=== PATIENT | male | born 1940 | race Caucasian/White ===

== ENCOUNTER 2016-05-09 14:03 | Outpatient (CLI) | payer OTHER, BC | END 2016-05-09 23:00 | LOC: LAB SRH 14:03 | DX: N05.9 Unspecified nephritic syndrome with unspecified morphologic changes (principal); R80.9 Proteinuria, unspecified; N25.81 Secondary hyperparathyroidism of renal origin | CPT/HCPCS: 90047; 90185; 91171; 92331 ==

== ENCOUNTER 2016-05-21 13:17 | Outpatient (CLI) | payer OTHER, BC | END 2016-05-21 23:00 | LOC: LAB SRH 13:17 | DX: Z51.81 Encounter for therapeutic drug level monitoring (principal); Z79.01 Long term (current) use of anticoagulants; I48.91 Unspecified atrial fibrillation | CPT/HCPCS: 90074; 94060 ==

== ENCOUNTER 2016-06-01 12:07 | Outpatient (CLI) | payer OTHER, BC ==
--- NOTE | 2016-06-01 12:40 | DIAGNOSTIC IMAGING REPORT ---
PROCEDURE: XR CHEST 2 VIEW INDICATION: COUGH TECHNIQUE: PA and lateral views. COMPARISON: Chest 05/22/2010 FINDINGS: There is a right lower lobe infiltrate and a small right pleural effusion. The infiltrate is seen best on the lateral view. Again there is borderline cardiomegaly IMPRESSION: 1. Right lower lobe infiltrate and small pleural effusion.
== END 2016-06-01 23:00 ==
LOC: XR SRH 12:07
DX: J90 Pleural effusion, not elsewhere classified (principal); R91.8 Other nonspecific abnormal finding of lung field

== ENCOUNTER 2016-06-20 10:14 | Outpatient (CLI) | payer OTHER, BC ==
--- NOTE | 2016-06-20 10:37 | DIAGNOSTIC IMAGING REPORT ---
PROCEDURE: XR CHEST 2 VIEW INDICATION: PNEUMONIA TECHNIQUE: PA and lateral views. COMPARISON: Chest 06/01/2016 FINDINGS: There is a new left lower lobe infiltrate and pleural effusion. No change in the right lower lobe infiltrate and right pleural effusion. IMPRESSION: 1. New left lower lobe infiltrate and pleural effusion.
== END 2016-06-20 23:00 ==
LOC: XR SRH 10:14
DX: R91.8 Other nonspecific abnormal finding of lung field (principal); J90 Pleural effusion, not elsewhere classified

== ENCOUNTER 2016-06-25 10:36 | Outpatient (CLI) | payer OTHER, BC ==
--- NOTE | 2016-06-25 12:02 | DIAGNOSTIC IMAGING REPORT ---
PROCEDURE: CT THORAX WITHOUT CONTRAST INDICATION: ABNORMAL CHEST XRAY TECHNIQUE: Noncontrast axial images were obtained of the chest with coronal and sagittal reformations. COMPARISON: Chest x-ray 06/20/2016 FINDINGS: 7 mm right upper lobe (image 31) and 5 mm right lower lobe (image 44) nodules. There are also small peripheral pleural based scars. Mild left basilar atelectasis. There are small bilateral pleural effusions, left greater than right. Enlarged pretracheal (1.4 cm short axis) and anterior mediastinal lymph nodes. Mild atherosclerosis of the aorta. Coronary atherosclerosis. Heart size is normal. Visualized upper abdomen is unremarkable. Large spurs of the mid to distal thoracic spine. No suspicious osseous lesions. IMPRESSION: 1. Minor left basilar atelectasis with small bilateral pleural effusions, left greater than right. 2. Two right upper and right lower lobe nodules, indeterminate but likely postinflammatory. Recommend follow-up scan in 6-12 months depending on risk factors.
== END 2016-06-25 23:00 ==
LOC: CT SRH 10:36
DX: R91.8 Other nonspecific abnormal finding of lung field (principal); J90 Pleural effusion, not elsewhere classified

== ENCOUNTER 2016-07-23 14:05 | Outpatient (CLI) | payer OTHER, BC | END 2016-07-23 23:00 | LOC: LAB SRH 14:05 | DX: Z79.01 Long term (current) use of anticoagulants (principal); I48.91 Unspecified atrial fibrillation | CPT/HCPCS: 90074; 94060 ==

== ENCOUNTER 2016-07-24 13:36 | Outpatient (CLI) | payer OTHER, BC ==
--- NOTE | 2016-07-24 14:18 | DIAGNOSTIC IMAGING REPORT ---
PROCEDURE: XR CHEST 2 VIEW INDICATION: DYSPNEA, ABNORMAL CHEST XRAY TECHNIQUE: PA and lateral views. COMPARISON: Chest 06/20/2016 and one FINDINGS: Increase in the left lower lobe infiltrate. Decrease in the right lower lobe infiltrate. No change in the bilateral pleural effusions. IMPRESSION: 1. Increase in left lower lobe infiltrate, decrease in right lower lobe infiltrate. Bilateral pleural effusions.
== END 2016-07-24 23:00 ==
LOC: XR SRH 13:36
DX: R91.8 Other nonspecific abnormal finding of lung field (principal); J90 Pleural effusion, not elsewhere classified

== ENCOUNTER 2016-07-26 08:26 | Outpatient (CLI) | payer OTHER, BC ==
--- NOTE | 2016-07-30 14:04 | DIAGNOSTIC IMAGING REPORT ---
PROCEDURE: 2-D M-mode echo Doppler CLINICAL INDICATION: Dyspnea atrial fibrillation TECHNIQUE: Standard 2-D and M-mode echo Doppler technique COMPARISON: None available FINDINGS: The aortic valve exhibits calcification with mild stenosis degree of 12 mm mean gradient 7 mm calculated valve area 0.9 cm2 no significant aortic insufficiency detected. One to 2+ MR detected mild mitral stenosis present. The tricuspid valve exhibits a moderate degree of TR with RVSP 37 pulmonic valve is normal. Left and right atrial enlargement present LVH present LV EF is 50% with normal contraction right ventricular chamber size and function is normal with elevated RVSP of 37 no abnormalities of the aortic order pericardium are seen IMPRESSION: Left Ventricular ejection fraction 50% with normal contraction Mild aortic stenosis peak gradient 12 mean gradient seven valve area 0.9 cm2 Mild Pulmonary hypertension with RVSP 37 Moderate tricuspid regurgitation One to 2+ mitral regurgitation Mild mitral stenosis
== END 2016-07-26 23:00 ==
LOC: US SRH 08:26 → RT SRH 10:30 → US SRH 10:30
DX: R06.00 Dyspnea, unspecified (principal); I48.0 Paroxysmal atrial fibrillation

== ENCOUNTER 2016-07-26 15:23 | Emergency (ER) | payer OTHER, BC ==
--- NOTE | 2016-07-26 17:01 | DIAGNOSTIC IMAGING REPORT ---
PROCEDURE: XR CHEST 2 VIEW INDICATION: SHORTNESS OF BREATH TECHNIQUE: PA and lateral views. COMPARISON: Chest 07/24/2016 and 06/20/2016 and 06/01/2016 FINDINGS: No change in the left lower lobe infiltrate and bilateral effusions. IMPRESSION: 1. No change in left lower lobe infiltrate and bilateral effusions.
--- NOTE | 2016-07-26 18:51 | ED ORDER SUMMARY ---
..... Patient: VARGHESE SANCHES SR OrderSheet [facility] VisitID: [id number] [place] [address] 76y, M Registration Date/Time: 07/26/2016 ORDER SHEET Weight: 138.3 kg (stated) Allergies: No Known Drug Allergy GENERAL ORDERS: Chest 2V Urgent (16:06 07/26/2016 Janae Hernández) (16:22 DMaziarka R.N.) PT with INR Urgent (16:10 07/26/2016 Janae Hernández) (16:21 DMaziarka R.N.) PTT Urgent (16:10 07/26/2016 Janae Hernández) (16:21 DMaziarka R.N.) Cardiac Panel Stat (16:10 07/26/2016 Janae Hernández) (16:11 DMaziarka R.N.) BNP Urgent (16:10 07/26/2016 Janae Hernández) (16:11 DMaziarka R.N.) D-Dimer Urgent (16:10 07/26/2016 Janae Hernández) (16:22 DMaziarka R.N.) UA-Culture if indicated Urgent (16:10 07/26/2016 Janae Hernández) (Ack 16:28 Claudia) (17:08 DMaziarka R.N.) MEDICATION ORDERS: Levofloxacin PO 500 mg (NOW) (18:35 07/26/2016 Janae Hernández) (18:48 DMaziarka R.N.) Azithromycin PO 500 mg (NOW) (18:36 07/26/2016 Janae Hernández) (18:48 DMaziarka R.N.) IV FLUIDS: IV Saline Lock (16:10 07/26/2016 Janae Hernández) (16:11 DMaziarka R.N.) ORDER SHEET NOTES: [Electronically signed by Bradley Reno Dr. (18:53 07/26/2016)] [Electronically signed by Linda Lim R.N. (07:59 08/01/2016)] [Electronically locked/signed by Linda Lim R.N. (07:59 08/01/2016)]
--- NOTE | 2016-07-26 18:51 | ED CLINICAL REPORT ---
Clinical Report - Physicians/Mid Levels [facility] [address] [place] [address] 07/26/2016 15:26 Patient: VARGHESE SANCHES SR Time Seen: 15:39; initial patient contact. Arrived- By private vehicle. Historian- patient. HISTORY OF PRESENT ILLNESS Chief Complaint: DYSPNEA. This started about 1 week ago and is still present and worsening. It was gradual in onset. The dyspnea is described as moderate and is worsened by walking and exertion and is improved by rest. The patient has had a cough, chills and dyspnea on exertion. No sputum production, fever, sweating episodes or wheezing. No chest pain or discomfort, calf pain, foot swelling or orthopnea. No paroxysmal nocturnal dyspnea, anxiety or palpitations. Similar symptoms previously: None. Recent medical care: The patient was seen recently in the office. ( Completed a Z pack for PNA, no better. Had a CXR 2 days ago and echo today.). REVIEW OF SYSTEMS No nausea, vomiting or skin rash. All systems otherwise negative, except as recorded above. PAST HISTORY Athlete's Foot. Stasis dermatitis. Renal Failure. Pneumonia. Edema. Dyspnea. Atrial Fibrillation. Onychomycosis. Anticoagulation. Prediabetes. Cough. --16:23 Amanda Cabral R.N. ADDITIONAL SURGERIES: Knee Prosthesis. Knee Surgery. Tonsillectomy. SOCIAL HISTORY Former smoker. No alcohol use or drug use. ADDITIONAL NOTES The nursing notes have been reviewed. PHYSICAL EXAM Vital Signs: 07/26/2016 15:42 BP: 153/59. HR: 89. RR: 30. O2 saturation: 93%. Temp: 98.2 F. Pain level now: 0/10. Have been reviewed. Hypertensive. Heart rate normal. Tachypneic. Temperature normal. Oxygen saturation low. Appearance: Alert. No acute distress. Eyes: Eyes normal inspection. No pale conjunctivae. ENT: Pharynx normal. Neck: No jugular venous distention. CVS: Normal heart rate and rhythm. Heart sounds normal. Respiratory: Mild respiratory distress with accessory muscle use and tachypnea. Mildly decreased air movement in the bases bilaterally. Mild rhonchi present in the left lung base posteriorly. No prolonged expiration or wheezes. Abdomen: Soft and nontender. No organomegaly. Skin: Skin warm and dry. Extremities: No lower extremity edema. Neuro: Oriented X 3. LABS, X-RAYS, AND EKG Chest X-ray: (No change in left lower lobe infiltrate and bilateral effusions.). Views: PA and lateral. Technique: good. The X-rays were independently viewed by me, interpreted by the radiologist and discussed with the radiologist. A comparison with prior films reveals that the findings are unchanged. Laboratory Tests: CBC w Diff: (BERT: 07/26/2016 16:15) ( [facility] [place] 16:39) Final results Test Result Flag Units (Reference) WHITE BLOOD COUNT 9.5 K/uL (4.5-11.5) RED BLOOD COUNT 4.51 M/uL (4.50-5.90) HEMOGLOBIN 12.2 L gm/dL (13.5-17.5) HEMATOCRIT 38.4 L % (41.0-53.0) MEAN CELL VOLUME 85 fL (80-100) MEAN CORPUSCULAR HGB 27 pg (26-34) MEAN CORPUSCULAR HGB CONC 32 g/dL (31-37) RED CELL DISTRIBUTION WIDTH 19.4 H % (11.6-14.8) PLATELET COUNT 180 K/uL (150-400) LYMPH % 15.4 L % (25-40) MONO % 4.9 % (3-14) GRANULOCYTE % 79.7 PT with INR: (BERT: 07/26/2016 16:15) ( [facility] [place]/26/2016 16:49) Final results Test Result Flag Units (Reference) INR 2.3 H (0.8-1.2) Low Intensity Therapy: INR 1.5-2.0 PT range 18.5-23.1Mod.Intensity Therapy: INR 2.0-3.0 PT range 23.1-31.5High Intensity Therapy: INR 2.5-3.5 PT range 27.4-35.5High Intensity Therapy 2: INR 3.0-4.0 PT range 31.5-39.3 APTT 50 H SECONDS (24-34) D-DIMER QUANTITATIVE 0.29 ug/mLFEU (0.27-0.52) The primary value of this quantitative assay relates toits negative predictive value (i.e. exclusion) of pulmonaryembolism/deep vein thrombosis/DIC.Elevated levels of d-dimer may also occur with:, age, cancer, inflammation, liver disease,post-op, infection, hematoma, coronary disease, peripheralarteriopathy, bleeding disorders and thrombolytic treatment.Results should be correlated with other clinical andradiological data.Testing Methodology: Latex Immunoassay BNP: (BERT: 07/26/2016 16:15) ( [facility] [place] 07/26/[place] 16:47) Final results Test Result Flag Units (Reference) B-TYPE NATRIURETIC PEPTIDE 232 H pg/ml (5-100) CHEM 13 PANEL: (BERT: 07/26/2016 16:15) ( [facility] [place] 07/26/2016 16:53) Final results Test Result Flag Units (Reference) GLUCOSE 140 H mg/dL (70-110) BUN 60 H mg/dL (7-18) CREATININE 3.7 H mg/dL (0.6-1.3) Estimated GFR 16.97 mL/min Estimated GFR- 20.57 mL/min Note: Persistent reduction over 3 months in eGFR<60 mL/min/1.73 m2 defines CKD. Patients with eGFR values>=60 mL/min/1.73 m2 may also have CKD if evidence ofpersistent proteinuria. Additional information may be foundat www.kidney.org. SODIUM 139 mmol/L (136-145) POTASSIUM 4.4 mmol/L (3.5-5.1) CHLORIDE 104 mmol/L (98-107) CARBON DIOXIDE 22 mmol/L (21-32) CALCIUM 9.3 mg/dL (8.5-10.1) TOTAL PROTEIN 7.8 g/dL (6.4-8.2) ALBUMIN 3.6 g/dL (3.3-5.0) BILIRUBIN, TOTAL 0.8 mg/dL (0.0-1.0) ALKALINE PHOSPHATASE 106 U/L (46-116) AST (SGOT) 16 U/L (15-37) ALT (SGPT) 24 U/L (12-78) MAGNESIUM 2.2 mg/dL (1.8-2.4) CPK 41 U/L (24-260) TROPONIN I 0.13 ng/mL (0.00-1.5) TROPONIN REFERENCE RANGE:<0.1 NEGATIVE0.1-1.5 INDETERMINANT>1.5 POSITIVE . PROGRESS AND PROCEDURES Discussed case with patient's primary care provider, (call returned 18:00 Dr. Parker. Pt has long standing renal dysfxn, last Cr 3. He is OK w/ expanded outpt Tx, another Z pack and renal dosed Levofloxacin and f/u in ofc on Saturday since CHF has been ruled out.). Reviewed test results. Agreed upon treatment plan. Disposition: Discharged home in good and improved condition. Condition: good. CLINICAL IMPRESSION Moderate chronic renal insufficiency. Bacterial pneumonia. Vital signs recorded and reviewed; empiric antibiotics given in the ED and prescribed. INSTRUCTIONS Your Current Medications: CONTINUE TAKING THE FOLLOWING MEDICATIONS: Allopurinol Oral : Tablet 300 mg, 1/2 tablet daily. AmLODIPine Besylate Oral : Tablet 5 mg, 1 tablet daily. Avapro Oral : Tablet 300 mg, 1/2 tablet daily. Calcitriol Oral : Capsule 0.25 mcg, 1 capsule daily. Diltiazem HCl ER Oral : Capsule Extended Release 24 Hour 240 mg, 1 capsule daily. Furosemide Oral : Tablet 20 mg, 2 tablets daily. Lac-Hydrin External : bid. Sodium Bicarbonate Oral : Tablet 650 mg, 1 tablet bid. Vitamin D Oral : Capsule 2000 unit, 1 capsule bid. Prescription Medications: Zithromax 250 mg tablets: take 1 orally every day for 4 days. Total course 4 days. No refills. Substitution is permissible. (Start on 07/27/16) Levofloxacin 250 mg: take 1 tab orally every day for 4 days. No refills. (Start on 07/27/16) Follow-up: Follow up with your doctor Saturday. Call for an appointment. Blood pressure screening was not performed during this visit because the patient has an active diagnosis of hypertension. (Electronically signed by Bradley Reno Dr. 07/26/2016 18:53)
--- NOTE | 2016-07-26 18:51 | ED NURSING NOTES ---
Clinical Report - Nurses [place] [address] [place] [address] 07/26/2016 15:26 [id number] TRI[facility] Triage time 15:42. Acuity: LEVEL 3. Chief Complaint: SHORTNESS OF BREATH. DENICE COMA SCORE: Denice Coma Scale: 15- eyes open spontaneously (4); best verbal response- oriented x 4 (5); best motor response- obeys commands (6). --15:52 Amanda Cabral R.N. 15:42 07/26/16. BP: 153/59. HR: 89. RR: 30. O2 saturation: 93% on room air. Temp: 98.2 F (oral). Pain level now: 0/10. --15:52 Amanda Cabral R.N. Weight: 138.3 kg stated. Height/Length: 76 inches Per Patient. BMI: 37.1. --15:47 Amanda Cabral R.N. Medications Diltiazem HCl ER Oral (Capsule Extended Release 24 Hour 240 mg) 1 capsule, daily. --16:07 Amanda Cabral R.N. Allopurinol Oral (Tablet 300 mg) 1/2 tablet, daily. --16:08 Amanda Cabral R.N. Furosemide Oral (Tablet 20 mg) 2 tablets, daily. --16:09 Amanda Cabral R.N. Avapro Oral (Tablet 300 mg) 1/2 tablet, daily. --16:09 Amanda Cabral R.N. Vitamin D Oral (Capsule 2000 unit) 1 capsule, bid. --16:10 Amanda Cabral R.N. Lac-Hydrin External, bid. --16:11 Amanda Cabral R.N. AmLODIPine Besylate Oral (Tablet 5 mg) 1 tablet, daily. --16:12 Amanda Cabral R.N. Calcitriol Oral (Capsule 0.25 mcg) 1 capsule, daily. --16:15 Amanda Cabral R.N. Sodium Bicarbonate Oral (Tablet 650 mg) 1 tablet, bid. --16:16 Amanda Cabral R.N. Medication/allergy information source: other. --16:24 Amanda Cabral R.N. Allergies No Known Drug Allergy. --16:16 Amanda Cabral R.N. History Arrived by private vehicle. Historian: patient. Accompanied by friend. Primary physician (Mickie). Onset. (weeks). ( has been seen many times, finished a Z-hya, dyspnea increases with activity). SOCIAL HX: Former smoker. No alcohol use or drug use. FALL RISK ASSESSMENT: Fall risk assessment completed. No fall risk identified. FUNCTIONAL ASSESSMENT: Functional assessment: no impairments noted. Functional assessment performed: independent with the activities of daily living. LEARNING NEEDS ASSESSMENT: The learning needs assessment revealed no barriers. --15:52 Amanda Cabral R.N. PROBLEMS: Athlete's Foot. Stasis dermatitis. Renal Failure. Pneumonia. Edema. Dyspnea. Atrial Fibrillation. Onychomycosis. Anticoagulation. Prediabetes. Cough. --16:23 Amanda Cabral R.N. ADDITIONAL SURGERIES: Knee Prosthesis. Knee Surgery. Tonsillectomy. --15:44 Amanda Cabral R.N. Assessment GENERAL / NEURO / PSYCH: The patient is awake and alert, is oriented and cooperative and appears anxious. He has good eye contact. RESPIRATORY: Moderate respiratory distress. --15:52 Amanda Cabral R.N. Interventions ID band on patient. To treatment room. --15:52 Amanda Cabral R.N. PHYSICAL ASSESSMENT 16:04 07/26/16. To room via wheelchair. Patient gowned. GENERAL / NEURO / PSYCH: The patient is awake and alert, appears uncomfortable and is oriented. He appears anxious, restless and agitated and has good eye contact. RESPIRATORY: Moderate respiratory distress. The patient can speak a few words at a time. ( increases with activity). SKIN: Skin is warm and dry. --16:04 Amanda Cabral R.N. 16:04 07/26/16. --16:04 Amanda Cabral R.N. NURSING PROGRESS NOTES 16:05 07/26/16. Pulse oximeter and NIBP monitor placed on patient. Patient gowned. Head of bed elevated. Call light placed in reach. Side rails up x 2. Bed placed in lowest position. Brakes of bed on. --16:05 Amanda Cabral R.N. 16:11 07/26/2016 Site #1 started via IV in the right hand with an 18g angiocath; one attempt. Saline lock flushed with 5 mL saline. --16:11 Aubrie Garcia R.N. The patient is calm and resting quietly. --17:08 Aubrie Garcia R.N. 17:08 07/26/16. BP: 130/60. HR: 90. RR: 24. O2 saturation: 97%. Pain level now 0/10. --17:08 Aubrie Garcia R.N. The patient is resting quietly. Overall patient status is improved. ( Speaking with MD about the plan of care). --17:47 Aubrie Garcia R.N. 18:22 07/26/16. BP: 142/60. HR: 88. RR: 24. O2 saturation: 97%. Pain level now 0/10. --18:23 Aubrie Garcia R.N. Patient waiting for disposition. --18:23 Aubrie Garcia R.N. 18:48 07/26/2016 Levofloxacin PO 500 mg given. Allergies verified and confirmed 5 rights. --18:48 Aubrie Garcia R.N. 18:48 07/26/2016 Azithromycin PO 500 mg given. Allergies verified and confirmed 5 rights. --18:48 Aubrie Garcia R.N. 18:49 07/26/2016 Site #1 removed upon discharge. Bandaid applied. --18:49 Aubrie Garcia R.N. Intake & Output Urine: 250, with return of 250 mL yellow-colored clear urine; odor is normal. --17:07 Aubrie Garcia R.N. DISPOSITION / DISCHARGE Departure time: 1900. Condition at departure: unchanged. No learning barriers present. Patient verbalized understanding. Written instructions provided in Persian. Discharge instructions not provided and reviewed with the patient. The patient was discharged home and accompanied by spouse. He left the Emergency Department ambulatory and via private vehicle. --18:59 Aubrie Garcia R.N. 18:53 07/26/16. BP: 118/74. HR: 80. RR: 24. O2 saturation: 95%. Pain level now 0/10. --18:59 Aubrie Garcia R.N. Locked/Released at 08/01/2016 7:59 by Linda Lim R.N.
--- NOTE | 2016-07-26 18:51 | ED ORDER SUMMARY ---
..... Patient: VARGHESE SANCHES SR OrderSheet [facility] VisitID: [id number] [place] [address] 76y, M Registration Date/Time: 07/26/2016 ORDER SHEET Weight: 138.3 kg (stated) Allergies: No Known Drug Allergy GENERAL ORDERS: Chest 2V Urgent (16:06 07/26/2016 Janae Hernández) (16:22 DMaziarka R.N.) PT with INR Urgent (16:10 07/26/2016 Janae Hernández) (16:21 DMaziarka R.N.) PTT Urgent (16:10 07/26/2016 Janae Hernández) (16:21 DMaziarka R.N.) Cardiac Panel Stat (16:10 07/26/2016 Janae Hernández) (16:11 DMaziarka R.N.) BNP Urgent (16:10 07/26/2016 Janae Hernández) (16:11 DMaziarka R.N.) D-Dimer Urgent (16:10 07/26/2016 Janae Hernández) (16:22 DMaziarka R.N.) UA-Culture if indicated Urgent (16:10 07/26/2016 Janae Hernández) (Ack 16:28 Claudia) (17:08 DMaziarka R.N.) MEDICATION ORDERS: Levofloxacin PO 500 mg (NOW) (18:35 07/26/2016 Janae Hernández) (18:48 DMaziarka R.N.) Azithromycin PO 500 mg (NOW) (18:36 07/26/2016 Janae Hernández) (18:48 DMaziarka R.N.) IV FLUIDS: IV Saline Lock (16:10 07/26/2016 Janae Hernández) (16:11 DMaziarka R.N.) ORDER SHEET NOTES: [Electronically signed by Bradley Reno Dr. (18:53 07/26/2016)] [Electronically signed by Linda Lim R.N. (07:59 08/01/2016)] [Electronically locked/signed by Linda Lim R.N. (07:59 08/01/2016)]
--- NOTE | 2016-08-01 08:00 | ED DISCHARGE INSTRUCTIONS ---
Patient: VARGHESE SANCHES General [facility] VisitID: [id number] [place] [address] 76y, M Registration Date/Time: 07/26/2016 Moderate chronic renal insufficiency. Bacterial pneumonia. Vital signs recorded and reviewed; empiric antibiotics given in the ED and prescribed. INSTRUCTIONS Your Current Medications: CONTINUE TAKING THE FOLLOWING MEDICATIONS: Allopurinol Oral : Tablet 300 mg, 1/2 tablet daily. AmLODIPine Besylate Oral : Tablet 5 mg, 1 tablet daily. Avapro Oral : Tablet 300 mg, 1/2 tablet daily. Calcitriol Oral : Capsule 0.25 mcg, 1 capsule daily. Diltiazem HCl ER Oral : Capsule Extended Release 24 Hour 240 mg, 1 capsule daily. Furosemide Oral : Tablet 20 mg, 2 tablets daily. Lac-Hydrin External : bid. Sodium Bicarbonate Oral : Tablet 650 mg, 1 tablet bid. Vitamin D Oral : Capsule 2000 unit, 1 capsule bid. Prescription Medications: Zithromax 250 mg tablets: take 1 orally every day for 4 days. Total course 4 days. No refills. Substitution is permissible. (Start on 07/27/16) Levofloxacin 250 mg: take 1 tab orally every day for 4 days. No refills. (Start on 07/27/16) Follow-up: Follow up with your doctor Saturday. Call for an appointment. Blood pressure screening was not performed during this visit because the patient has an active diagnosis of hypertension. ADDITIONAL INFORMATION Renal Insufficiency The role of the kidneys is to remove waste products and excess water from the body. When the kidneys do not function normally, waste products build up in the blood.The early stage of this process is called renal insufficiency . If renal insufficiency worsens it can lead to chronic renal failure. This allows excess water, waste and toxic substances to build up in the body. This can become a threat to life, requiring dialysis or a kidney transplant to stay alive. Diabetes is the leading causes of renal insufficiency. Other causes include high blood pressure, hardening of the arteries, lupus, inflammation of the blood vessels (vasculitis), prior viral and bacterial infections, and others. Certain sqhe-rps-licuryy pain medicines can cause renal failure when taken often over a long period of time. These include aspirin, ibuprofen (Advil, Motrin) and related anti-inflammatory medicines. Home Care: If you have diabetes, talk to your doctor about the quality of your blood sugar control.Ask about any changes needed to your diet or medicines. If you have high blood pressure: Take your blood pressure medicine. Take up a regular exercise program that you enjoy.Check with your doctor to be sure your planned exercise program is right for you. Reduce your salt (sodium) intake.Your doctor can tell you how much salt per day is safe for you. If you are overweight, talk to your doctor about a weight loss plan. If you smoke, you must quit.Smoking worsens kidney disease.Talk to your doctor about ways to help you quit.For more information, visit the following links: www.smokefree.gov/pubs/clearing_the_air.pdf www.smokefree.gov www.[employer].com Talk to your doctor about any dietary restrictions advised. In general, it is advisable to limit protein, salt, potassium and phosphorus.Avoid excess fluids. Do not add salt at the table and avoid salty foods.A calcium supplement may be prescribed to protect your bones from osteoporosis. Avoid the following over the counter medicines, or consult your doctor before using: Aspirin and anti-inflammatory drugs such as ibuprofen (Advil, Motrin), naprosyn (Aleve); [Short term use of acetaminophen (Tylenol) for fever or pain is okay.] Laxatives and antacids containing magnesium or aluminum (Mylanta, Maalox) Avoid Fleet or phosphosoda enemas which contain phosphorus Certain stomach acid-blocking medicine such as cimetidine (Tagamet), ranitidine (Zantac) Decongestants containing pseudoephedrine (such as some forms of Sudafed or Actifed) Herbal supplements Follow Up with your doctor or as advised by our staff. Contact one of the following for more information. [place] [phone] [phone] www.aakp.org National Kidney Foundation www.kidney.org Return Promptly or contact your doctor if any of the following occurs: Nausea or vomiting Severe weakness, dizziness, fainting, drowsiness or confusion Chest pain or shortness of breath Unexpected weight gain or swelling in the legs, ankles or around the eyes Heart beating fast, slow or irregularly Decrease or loss in urine output Azithromycin Oral tablet What is this medicine? AZITHROMYCIN (az sabina gonzalez) is a macrolide antibiotic. It is used to treat or prevent certain kinds of bacterial infections. It will not work for colds, flu, or other viral infections. How should I use this medicine? Take this medicine by mouth with a full glass of water. Follow the directions on the prescription label. The tablets can be taken with food or on an empty stomach. If the medicine upsets your stomach, take it with food. Take your medicine at regular intervals. Do not take your medicine more often than directed. Take all of your medicine as directed even if you think your are better. Do not skip doses or stop your medicine early. Talk to your bpm developer regarding the use of this medicine in children. Special care may be needed. What side effects may I notice from receiving this medicine? Side effects that you should report to your doctor or health career and technology education teacher as soon as possible: allergic reactions like skin rash, itching or hives, swelling of the face, lips, or tongue confusion, nightmares or hallucinations dark urine difficulty breathing hearing loss irregular heartbeat or chest pain pain or difficulty passing urine redness, blistering, peeling or loosening of the skin, including inside the mouth white patches or sores in the mouth yellowing of the eyes or skin Side effects that usually do not require medical attention (report to your doctor or health career and technology education teacher if they continue or are bothersome): diarrhea dizziness, drowsiness headache stomach upset or vomiting tooth discoloration vaginal irritation What may interact with this medicine? Do not take this medicine with any of the following medications: lincomycin This medicine may also interact with the following medications: amiodarone antacids cyclosporine digoxin magnesium nelfinavir phenytoin warfarin What if I miss a dose? If you miss a dose, take it as soon as you can. If it is almost time for your next dose, take only that dose. Do not take double or extra doses. Where should I keep my medicine? Keep out of the reach of children. Store at room temperature between 15 and 30 degrees C (59 and 86 degrees F). Throw away any unused medicine after the expiration date. What should I tell my health care provider before I take this medicine? They need to know if you have any of these conditions: kidney disease liver disease irregular heartbeat or heart disease an unusual or allergic reaction to azithromycin, erythromycin, other macrolide antibiotics, foods, dyes, or preservatives or trying to get breast-feeding What should I watch for while using this medicine? Tell your doctor or health career and technology education teacher if your symptoms do not improve. Do not treat diarrhea with over the counter products. Contact your doctor if you have diarrhea that lasts more than 2 days or if it is severe and watery. This medicine can make you more sensitive to the sun. Keep out of the sun. If you cannot avoid being in the sun, wear protective clothing and use sunscreen. Do not use sun lamps or tanning beds/booths. Levofloxacin Oral tablet What is this medicine? LEVOFLOXACIN (aravind crainangie JOANNA gonzalez) is a quinolone antibiotic. It is used to treat certain kinds of bacterial infections. It will not work for colds, flu, or other viral infections. How should I use this medicine? Take this medicine by mouth with a full glass of water. Follow the directions on the prescription label. This medicine can be taken with or without food. Take your medicine at regular intervals. Do not take your medicine more often than directed. Do not skip doses or stop your medicine early even if you feel better. Do not stop taking except on your doctor's advice. A special MedGuide will be given to you by the pharmacist with each prescription and refill. Be sure to read this information carefully each time. Talk to your bpm developer regarding the use of this medicine in children. While this drug may be prescribed for children as young as 6 months for selected conditions, precautions do apply. What side effects may I notice from receiving this medicine? Side effects that you should report to your doctor or health career and technology education teacher as soon as possible: -allergic reactions like skin rash or hives, swelling of the face, lips, or tongue -changes in vision -confusion, nightmares or hallucinations -difficulty breathing -irregular heartbeat, chest pain -joint, muscle or tendon pain -pain or difficulty passing urine -persistent headache with or without blurred vision -redness, blistering, peeling or loosening of the skin, including inside the mouth -seizures -unusual pain, numbness, tingling, or weakness -vaginal irritation, discharge Side effects that usually do not require medical attention (report to your doctor or health career and technology education teacher if they continue or are bothersome): -diarrhea -dry mouth -headache -stomach upset, nausea -trouble sleeping What may interact with this medicine? Do not take this medicine with any of the following medications: - arsenic trioxide - chloroquine - droperidol - medicines for irregular heart rhythm like amiodarone, disopyramide, dofetilide, flecainide, quinidine, procainamide, sotalol - some medicines for depression or mental problems like phenothiazines, pimozide, and ziprasidone This medicine may also interact with the following medications: - amoxapine -antacids - cisapride - dairy products - didanosine (ddI) buffered tablets or powder - haloperidol - multivitamins -NSAIDS, medicines for pain and inflammation, like ibuprofen or naproxen - retinoid products like tretinoin or isotretinoin - risperidone - some other antibiotics like clarithromycin or erythromycin - sucralfate - theophylline - warfarin What if I miss a dose? If you miss a dose, take it as soon as you remember. If it is almost time for your next dose, take only that dose. Do not take double or extra doses. Where should I keep my medicine? Keep out of the reach of children. Store at room temperature between 15 and 30 degrees C (59 and 86 degrees F). Keep in a tightly closed container. Throw away any unused medicine after the expiration date. What should I tell my health care provider before I take this medicine? They need to know if you have any of these conditions: cerebral disease irregular heartbeat kidney disease seizure disorder an unusual or allergic reaction to levofloxacin, other antibiotics or medicines, foods, dyes, or preservatives or trying to get breast-feeding What should I watch for while using this medicine? Tell your doctor or health career and technology education teacher if your symptoms do not improve or if they get worse. Drink several glasses of water a day and cut down on drinks that contain caffeine. You must not get dehydrated while taking this medicine. You may get drowsy or dizzy. Do not drive, use machinery, or do anything that needs mental alertness until you know how this medicine affects you. Do not sit or stand up quickly, especially if you are an older patient. This reduces the risk of dizzy or fainting spells. This medicine can make you more sensitive to the sun. Keep out of the sun. If you cannot avoid being in the sun, wear protective clothing and use a sunscreen. Do not use sun lamps or tanning beds/booths. Contact your doctor if you get a sunburn. If you are a diabetic monitor your blood glucose carefully. If you get an unusual reading stop taking this medicine and call your doctor right away. Do not treat diarrhea with gtle-icl-utgybpk products. Contact your doctor if you have diarrhea that lasts more than 2 days or if the diarrhea is severe and watery. Avoid antacids, calcium, iron, and zinc products for 2 hours before and 2 hours after taking a dose of this medicine. You have been given the following additional information: Renal Insufficiency Azithromycin Oral tablet Levofloxacin Oral tablet (Electronically signed by Bradley Reno Dr. 07/26/2016 18:53)
--- NOTE | 2016-08-01 08:00 | ED MED RECONCILIATION SUMMARY ---
Patient: VARGHESE SANCHES SR Medication Reconciliation Report [facility] VisitID: [id number] [place] [address] 76y, M Registration Date/Time: 07/26/2016 Weight: 138.3 kg Height/Length: 76 in. BMI: 37.1 ALLERGIES: No Known Drug Allergy The patient's Home Medications are listed below: CONTINUE TAKING THE FOLLOWING MEDICATIONS: Allopurinol Oral (300 mg) 1/2 tablet, daily AmLODIPine Besylate Oral (5 mg) 1 tablet, daily Avapro Oral (300 mg) 1/2 tablet, daily Calcitriol Oral (0.25 mcg) 1 capsule, daily Diltiazem HCl ER Oral (240 mg) 1 capsule, daily Furosemide Oral (20 mg) 2 tablets, daily Lac-Hydrin External, bid Sodium Bicarbonate Oral (650 mg) 1 tablet, bid Vitamin D Oral (2000 unit) 1 capsule, bid The source(s) of the original Home Medication information: other The following Medications were given to the patient in the Emergency Department: Levofloxacin [PO] PO 500 mg, administered: 07/26/2016 6:48:00 PM Azithromycin [PO] PO 500 mg, administered: 07/26/2016 6:48:00 PM The following Medications were prescribed to the patient: Zithromax 250 mg tablets: take 1 orally every day for 4 days. Total course 4 days. No refills. Substitution is permissible.(Start on 07/27/16) -- Bradley Reno Dr. Levofloxacin 250 mg: take 1 tab orally every day for 4 days. No refills.(Start on 07/27/16) -- Bradley Reno Dr.
--- NOTE | 2016-08-01 08:00 | ED MED RECONCILIATION SUMMARY ---
Patient: VARGHESE SANCHES SR Medication Reconciliation Report [facility] VisitID: [id number] [place] [address] 76y, M Registration Date/Time: 07/26/2016 Weight: 138.3 kg Height/Length: 76 in. BMI: 37.1 ALLERGIES: No Known Drug Allergy The patient's Home Medications are listed below: CONTINUE TAKING THE FOLLOWING MEDICATIONS: Allopurinol Oral (300 mg) 1/2 tablet, daily AmLODIPine Besylate Oral (5 mg) 1 tablet, daily Avapro Oral (300 mg) 1/2 tablet, daily Calcitriol Oral (0.25 mcg) 1 capsule, daily Diltiazem HCl ER Oral (240 mg) 1 capsule, daily Furosemide Oral (20 mg) 2 tablets, daily Lac-Hydrin External, bid Sodium Bicarbonate Oral (650 mg) 1 tablet, bid Vitamin D Oral (2000 unit) 1 capsule, bid The source(s) of the original Home Medication information: other The following Medications were given to the patient in the Emergency Department: Levofloxacin [PO] PO 500 mg, administered: 07/26/2016 6:48:00 PM Azithromycin [PO] PO 500 mg, administered: 07/26/2016 6:48:00 PM The following Medications were prescribed to the patient: Zithromax 250 mg tablets: take 1 orally every day for 4 days. Total course 4 days. No refills. Substitution is permissible.(Start on 07/27/16) -- Bradley Reno Dr. Levofloxacin 250 mg: take 1 tab orally every day for 4 days. No refills.(Start on 07/27/16) -- Bradley Reno Dr.
--- NOTE | 2016-08-01 08:00 | ED DISCHARGE INSTRUCTIONS ---
Patient: VARGHESE SANCHES General Instructions [facility] VisitID: [id number] [place] [address] 76y, M Registration Date/Time: 07/26/2016 Moderate chronic renal insufficiency. Bacterial pneumonia. Vital signs recorded and reviewed; empiric antibiotics given in the ED and prescribed. INSTRUCTIONS Your Current Medications: CONTINUE TAKING THE FOLLOWING MEDICATIONS: Allopurinol Oral : Tablet 300 mg, 1/2 tablet daily. AmLODIPine Besylate Oral : Tablet 5 mg, 1 tablet daily. Avapro Oral : Tablet 300 mg, 1/2 tablet daily. Calcitriol Oral : Capsule 0.25 mcg, 1 capsule daily. Diltiazem HCl ER Oral : Capsule Extended Release 24 Hour 240 mg, 1 capsule daily. Furosemide Oral : Tablet 20 mg, 2 tablets daily. Lac-Hydrin External : bid. Sodium Bicarbonate Oral : Tablet 650 mg, 1 tablet bid. Vitamin D Oral : Capsule 2000 unit, 1 capsule bid. Prescription Medications: Zithromax 250 mg tablets: take 1 orally every day for 4 days. Total course 4 days. No refills. Substitution is permissible. (Start on 07/27/16) Levofloxacin 250 mg: take 1 tab orally every day for 4 days. No refills. (Start on 07/27/16) Follow-up: Follow up with your doctor Saturday. Call for an appointment. Blood pressure screening was not performed during this visit because the patient has an active diagnosis of hypertension. ADDITIONAL INFORMATION Renal Insufficiency The role of the kidneys is to remove waste products and excess water from the body. When the kidneys do not function normally, waste products build up in the blood.The early stage of this process is called renal insufficiency . If renal insufficiency worsens it can lead to chronic renal failure. This allows excess water, waste and toxic substances to build up in the body. This can become a threat to life, requiring dialysis or a kidney transplant to stay alive. Diabetes is the leading causes of renal insufficiency. Other causes include high blood pressure, hardening of the arteries, lupus, inflammation of the blood vessels (vasculitis), prior viral and bacterial infections, and others. Certain yyvr-rnq-hrlwifn pain medicines can cause renal failure when taken often over a long period of time. These include aspirin, ibuprofen (Advil, Motrin) and related anti-inflammatory medicines. Home Care: If you have diabetes, talk to your doctor about the quality of your blood sugar control.Ask about any changes needed to your diet or medicines. If you have high blood pressure: Take your blood pressure medicine. Take up a regular exercise program that you enjoy.Check with your doctor to be sure your planned exercise program is right for you. Reduce your salt (sodium) intake.Your doctor can tell you how much salt per day is safe for you. If you are overweight, talk to your doctor about a weight loss plan. If you smoke, you must quit.Smoking worsens kidney disease.Talk to your doctor about ways to help you quit.For more information, visit the following links: www.smokefree.gov/pubs/clearing_the_air.pdf www.smokefree.gov www.[employer].com Talk to your doctor about any dietary restrictions advised. In general, it is advisable to limit protein, salt, potassium and phosphorus.Avoid excess fluids. Do not add salt at the table and avoid salty foods.A calcium supplement may be prescribed to protect your bones from osteoporosis. Avoid the following over the counter medicines, or consult your doctor before using: Aspirin and anti-inflammatory drugs such as ibuprofen (Advil, Motrin), naprosyn (Aleve); [Short term use of acetaminophen (Tylenol) for fever or pain is okay.] Laxatives and antacids containing magnesium or aluminum (Mylanta, Maalox) Avoid Fleet or phosphosoda enemas which contain phosphorus Certain stomach acid-blocking medicine such as cimetidine (Tagamet), ranitidine (Zantac) Decongestants containing pseudoephedrine (such as some forms of Sudafed or Actifed) Herbal supplements Follow Up with your doctor or as advised by our staff. Contact one of the following for more information. [place] [phone] www.aakp.org National [employer] www.kidney.org Return Promptly or contact your doctor if any of the following occurs: Nausea or vomiting Severe weakness, dizziness, fainting, drowsiness or confusion Chest pain or shortness of breath Unexpected weight gain or swelling in the legs, ankles or around the eyes Heart beating fast, slow or irregularly Decrease or loss in urine output Azithromycin Oral tablet What is this medicine? AZITHROMYCIN (az sabina gonzalez) is a macrolide antibiotic. It is used to treat or prevent certain kinds of bacterial infections. It will not work for colds, flu, or other viral infections. How should I use this medicine? Take this medicine by mouth with a full glass of water. Follow the directions on the prescription label. The tablets can be taken with food or on an empty stomach. If the medicine upsets your stomach, take it with food. Take your medicine at regular intervals. Do not take your medicine more often than directed. Take all of your medicine as directed even if you think your are better. Do not skip doses or stop your medicine early. Talk to your job training supervisor regarding the use of this medicine in children. Special care may be needed. What side effects may I notice from receiving this medicine? Side effects that you should report to your doctor or health career development facilitator as soon as possible: allergic reactions like skin rash, itching or hives, swelling of the face, lips, or tongue confusion, nightmares or hallucinations dark urine difficulty breathing hearing loss irregular heartbeat or chest pain pain or difficulty passing urine redness, blistering, peeling or loosening of the skin, including inside the mouth white patches or sores in the mouth yellowing of the eyes or skin Side effects that usually do not require medical attention (report to your doctor or health career development facilitator if they continue or are bothersome): diarrhea dizziness, drowsiness headache stomach upset or vomiting tooth discoloration vaginal irritation What may interact with this medicine? Do not take this medicine with any of the following medications: lincomycin This medicine may also interact with the following medications: amiodarone antacids cyclosporine digoxin magnesium nelfinavir phenytoin warfarin What if I miss a dose? If you miss a dose, take it as soon as you can. If it is almost time for your next dose, take only that dose. Do not take double or extra doses. Where should I keep my medicine? Keep out of the reach of children. Store at room temperature between 15 and 30 degrees C (59 and 86 degrees F). Throw away any unused medicine after the expiration date. What should I tell my health care provider before I take this medicine? They need to know if you have any of these conditions: kidney disease liver disease irregular heartbeat or heart disease an unusual or allergic reaction to azithromycin, erythromycin, other macrolide antibiotics, foods, dyes, or preservatives or trying to get breast-feeding What should I watch for while using this medicine? Tell your doctor or health career development facilitator if your symptoms do not improve. Do not treat diarrhea with over the counter products. Contact your doctor if you have diarrhea that lasts more than 2 days or if it is severe and watery. This medicine can make you more sensitive to the sun. Keep out of the sun. If you cannot avoid being in the sun, wear protective clothing and use sunscreen. Do not use sun lamps or tanning beds/booths. Levofloxacin Oral tablet What is this medicine? LEVOFLOXACIN (aravind crainangie JOANNA gonzalez) is a quinolone antibiotic. It is used to treat certain kinds of bacterial infections. It will not work for colds, flu, or other viral infections. How should I use this medicine? Take this medicine by mouth with a full glass of water. Follow the directions on the prescription label. This medicine can be taken with or without food. Take your medicine at regular intervals. Do not take your medicine more often than directed. Do not skip doses or stop your medicine early even if you feel better. Do not stop taking except on your doctor's advice. A special MedGuide will be given to you by the pharmacist with each prescription and refill. Be sure to read this information carefully each time. Talk to your job training supervisor regarding the use of this medicine in children. While this drug may be prescribed for children as young as 6 months for selected conditions, precautions do apply. What side effects may I notice from receiving this medicine? Side effects that you should report to your doctor or health career development facilitator as soon as possible: -allergic reactions like skin rash or hives, swelling of the face, lips, or tongue -changes in vision -confusion, nightmares or hallucinations -difficulty breathing -irregular heartbeat, chest pain -joint, muscle or tendon pain -pain or difficulty passing urine -persistent headache with or without blurred vision -redness, blistering, peeling or loosening of the skin, including inside the mouth -seizures -unusual pain, numbness, tingling, or weakness -vaginal irritation, discharge Side effects that usually do not require medical attention (report to your doctor or health career development facilitator if they continue or are bothersome): -diarrhea -dry mouth -headache -stomach upset, nausea -trouble sleeping What may interact with this medicine? Do not take this medicine with any of the following medications: - arsenic trioxide - chloroquine - droperidol - medicines for irregular heart rhythm like amiodarone, disopyramide, dofetilide, flecainide, quinidine, procainamide, sotalol - some medicines for depression or mental problems like phenothiazines, pimozide, and ziprasidone This medicine may also interact with the following medications: - amoxapine -antacids - cisapride - dairy products - didanosine (ddI) buffered tablets or powder - haloperidol - multivitamins -NSAIDS, medicines for pain and inflammation, like ibuprofen or naproxen - retinoid products like tretinoin or isotretinoin - risperidone - some other antibiotics like clarithromycin or erythromycin - sucralfate - theophylline - warfarin What if I miss a dose? If you miss a dose, take it as soon as you remember. If it is almost time for your next dose, take only that dose. Do not take double or extra doses. Where should I keep my medicine? Keep out of the reach of children. Store at room temperature between 15 and 30 degrees C (59 and 86 degrees F). Keep in a tightly closed container. Throw away any unused medicine after the expiration date. What should I tell my health care provider before I take this medicine? They need to know if you have any of these conditions: cerebral disease irregular heartbeat kidney disease seizure disorder an unusual or allergic reaction to levofloxacin, other antibiotics or medicines, foods, dyes, or preservatives or trying to get breast-feeding What should I watch for while using this medicine? Tell your doctor or health career development facilitator if your symptoms do not improve or if they get worse. Drink several glasses of water a day and cut down on drinks that contain caffeine. You must not get dehydrated while taking this medicine. You may get drowsy or dizzy. Do not drive, use machinery, or do anything that needs mental alertness until you know how this medicine affects you. Do not sit or stand up quickly, especially if you are an older patient. This reduces the risk of dizzy or fainting spells. This medicine can make you more sensitive to the sun. Keep out of the sun. If you cannot avoid being in the sun, wear protective clothing and use a sunscreen. Do not use sun lamps or tanning beds/booths. Contact your doctor if you get a sunburn. If you are a diabetic monitor your blood glucose carefully. If you get an unusual reading stop taking this medicine and call your doctor right away. Do not treat diarrhea with glzm-aju-raktqom products. Contact your doctor if you have diarrhea that lasts more than 2 days or if the diarrhea is severe and watery. Avoid antacids, calcium, iron, and zinc products for 2 hours before and 2 hours after taking a dose of this medicine. You have been given the following additional information: Renal Insufficiency Azithromycin Oral tablet Levofloxacin Oral tablet (Electronically signed by Bradley Reno Dr. 07/26/2016 18:53)
--- NOTE | 2016-08-01 08:00 | ED MAR SUMMARY ---
..... Medication Administration Record [facility] [address] [place] [address] Patient: VARGHESE SANCHES Visit ID: [id number] 76y, M Weight: 138.3 kg Height/Length: 76 in BMI: 37.1 ALLERGIES: No Known Drug Allergy Given 18:48 07/26/2016 Aubrie Garcia, R.N. Medication Administered: LEVOFLOXACIN [PO], Dose: 500 mg PO. Medication Ordered: Levofloxacin PO 500 mg (NOW). Given 18:48 07/26/2016 Aubrie Garcia, R.N. Medication Administered: AZITHROMYCIN [PO], Dose: 500 mg PO. Medication Ordered: Azithromycin PO 500 mg (NOW).
--- NOTE | 2016-08-01 08:00 | ED MAR SUMMARY ---
..... Medication Administration Record [facility] [address] [place] [address] Patient: VARGHESE SANCHES Visit ID: [id number] 76y, M Weight: 138.3 kg Height/Length: 76 in BMI: 37.1 ALLERGIES: No Known Drug Allergy Given 18:48 07/26/2016 Aubrie Garcia, R.N. Medication Administered: LEVOFLOXACIN [PO], Dose: 500 mg PO. Medication Ordered: Levofloxacin PO 500 mg (NOW). Given 18:48 07/26/2016 Aurbie Garcia, R.N. Medication Administered: AZITHROMYCIN [PO], Dose: 500 mg PO. Medication Ordered: Azithromycin PO 500 mg (NOW).
== END 2016-07-26 19:00 | disposition home or self-care (01) ==
LOC: ED SRH 15:23
DX: J15.8 Pneumonia due to other specified bacteria (principal); N18.3 Chronic kidney disease, stage 3 (moderate); Z79.899 Other long term (current) drug therapy
CPT/HCPCS: 90004; 90074; 90100; 90616; 91320; 91556; 92610; 92720; 94001; 94060; 95059

== ENCOUNTER 2016-08-03 09:13 | Outpatient (CLI) | payer OTHER, BC ==
--- NOTE | 2016-08-03 15:58 | DIAGNOSTIC IMAGING REPORT ---
PROCEDURE: NM PULMONARY PERFUSION W/VENT INDICATION: DYSPNEA,ABN CXR TECHNIQUE: 43 mCi of technetium-99m DTPA was aerosolized and inhaled. 6 mCi technetium-99m MAA was injected intravenously. Ventilation and perfusion images were obtained in the AP, PA, right lateral, left lateral, KRAUSE, ROMANSH, RPO and LPO positions. COMPARISON: Chest x-ray 07/26/2016. FINDINGS: There are several ventilation defects in the left lung suggestive of COPD. There is a single matched defect of the left lung superior segment. IMPRESSION: 1. No evidence of mismatched defects. Low probability of pulmonary embolus 2. Findings discussed with Dr. Rueda
--- NOTE | 2016-08-03 15:58 | DIAGNOSTIC IMAGING REPORT ---
PROCEDURE: NM PULMONARY PERFUSION W/VENT INDICATION: DYSPNEA,ABN CXR TECHNIQUE: 43 mCi of technetium-99m DTPA was aerosolized and inhaled. 6 mCi technetium-99m MAA was injected intravenously. Ventilation and perfusion images were obtained in the AP, PA, right lateral, left lateral, KRAUSE, KHMER, RPO and LPO positions. COMPARISON: Chest x-ray 07/26/2016. FINDINGS: There are several ventilation defects in the left lung suggestive of COPD. There is a single matched defect of the left lung superior segment. IMPRESSION: 1. No evidence of mismatched defects. Low probability of pulmonary embolus 2. Findings discussed with Dr. Rueda
== END 2016-08-03 23:00 ==
LOC: NM SRH 09:13
DX: N05.9 Unspecified nephritic syndrome with unspecified morphologic changes (principal); R06.00 Dyspnea, unspecified; R91.8 Other nonspecific abnormal finding of lung field; D50.0 Iron deficiency anemia secondary to blood loss (chronic); R80.9 Proteinuria, unspecified; D64.9 Anemia, unspecified; N25.81 Secondary hyperparathyroidism of renal origin
CPT/HCPCS: 90047; 90074; 90185; 91162; 91163; 91171; 91282; 92331; 92668; 92670